=== PATIENT | male | born 1975 | race American Indian/Alaskan Native ===

== ENCOUNTER 2016-07-20 16:45 | Emergency (ER) | payer SELFPAY ==
[2016-07-20] MEDS ORDERED: TORADOL IM ONE (22:19)
--- NOTE | 2016-07-20 22:43 | Emergency Department Report ---
- General Chief Complaint: Upper Respiratory Infection Stated Complaint: COLD SX Time Seen by Provider: 07/20/16 22:14 Source: patient, EMS Mode of arrival: Ambulatory Limitations: No Limitations - History of Present Illness Initial Comments: 41 y/o male complain of shortness of breath ,headache and dizziness x 3 week .pt state that he was smoker for over 20 years and stop 2 months ago.pt state since stop smoking that he has intermittent difficult of shortness of breath .pt state worsen when at work .pt state that headache and dizziness occurs often .pt state that since stop smoking pt has notice edema round ankle .pt denies any prior medical treatment . Onset/Timin -: month(s) Severity: mild Severity scale (0 -10): 5 Consistency: intermittent Improves With: nothing Worsens With: nothing Associated Symptoms: denies other symptoms - Related Data Previous Rx's Medication Instructions Recorded Last Taken Type Sulfamethoxazole/Trimethoprim 1 each PO TID #126 tablet 07/21/16 Unknown Rx [Bactrim DS TAB] Allergies Allergy/AdvReac Type Severity Reaction Status Date / Time No Known Allergies Allergy Verified 07/20/16 23:58 ED Review of Systems ROS: Stated complaint: COLD SX Other details as noted in HPI Constitutional: denies: chills, fever Eyes: denies: eye pain, eye discharge, vision change ENT: denies: ear pain, throat pain Respiratory: cough, shortness of breath, SOB with exertion. denies: wheezing Cardiovascular: denies: chest pain, palpitations Endocrine: no symptoms reported Gastrointestinal: denies: abdominal pain, nausea, diarrhea Genitourinary: denies: urgency, dysuria Musculoskeletal: denies: back pain, joint swelling, arthralgia Skin: denies: rash, lesions Neurological: headache. denies: weakness, paresthesias Psychiatric: denies: anxiety, depression Hematological/Lymphatic: denies: easy bleeding, easy bruising ED Past Medical Hx - Past Medical History Previous Medical History?: No - Surgical History Past Surgical History?: No - Social History Smoking Status: Former Smoker Substance Use Type: None - Medications Home Medications: Home Medications Medication Instructions Recorded Confirmed Last Taken Type Sulfamethoxazole/Trimethoprim 1 each PO TID #126 tablet 07/21/16 Unknown Rx [Bactrim DS TAB] ED Physical Exam - General Limitations: No Limitations General appearance: alert, in no apparent distress - Head Head exam: Present: atraumatic, normocephalic - Eye Eye exam: Present: normal appearance - ENT ENT exam: Present: mucous membranes moist - Expanded ENT Exam Expanded Mouth exam: Present: other (oral thrush noted to back of throat ) - Neck Neck exam: Present: normal inspection - Respiratory Respiratory exam: Present: normal lung sounds bilaterally. Absent: respiratory distress - Cardiovascular Cardiovascular Exam: Present: regular rate, normal rhythm. Absent: systolic murmur, diastolic murmur, rubs, gallop - GI/Abdominal GI/Abdominal exam: Present: soft, normal bowel sounds - Rectal Rectal exam: Present: deferred - Extremities Exam Extremities exam: Present: normal inspection, full ROM - Back Exam Back exam: Present: normal inspection - Neurological Exam Neurological exam: Present: alert, oriented X3 - Psychiatric Psychiatric exam: Present: normal affect, normal mood - Skin Skin exam: Present: warm, dry, intact, normal color. Absent: rash ED Course Vital Signs 07/20/16 07/20/16 07/21/16 17:10 21:25 02:48 Temperature 99.4 F 99.6 F 97.8 F Pulse Rate 92 H 99 H 75 Respiratory 20 22 15 Rate Blood Pressure 98/62 Blood Pressure 112/69 105/70 [Right] O2 Sat by Pulse 98 99 97 Oximetry 07/21/16 02:49 Temperature 98.2 F Pulse Rate Respiratory Rate Blood Pressure Blood Pressure [Right] O2 Sat by Pulse Oximetry ED Medical Decision Making - Lab Data Result diagrams: 07/20/16 22:45 07/20/16 22:45 - Medical Decision Making Consult with : treat patient outpatient for Pneumocystis Pneumonia and follow up with Infectious Disease clinic Critical care attestation.: If time is entered above; I have spent that time in minutes in the direct care of this critically ill patient, excluding procedure time. ED Disposition Clinical Impression: Pneumonia, pneumocystis carinii Qualifiers: Laterality: bilateral Lung location: lower lobe of lung Qualified Code(s): B59 - Pneumocystosis Disposition: DISCHARGED TO HOME OR SELFCARE Is pt being admited?: No Does the pt Need Aspirin: No Condition: Stable Instructions: Bacterial Pneumonia (ED) Prescriptions: Sulfamethoxazole/Trimethoprim [Bactrim DS TAB] 1 each PO TID #126 tablet Forms: Work/School Release Form(ED) Time of Disposition: :20
[2016-07-20 23:02] LABS: Basophils % (Auto) 0.4 % (0.0-1.8); Eosinophils % (Auto) 4.9 % (0.0-4.3); Hematocrit 32.4 % (35.5-45.6); Hemoglobin 10.6 gm/dl (11.8-15.2); Mean Corpuscular HGB Conc 33 % (32-34); Mean Corpuscular Hemoglobin 28 pg (28-32); Mean Corpuscular Volume 85 fl (84-94); Platelet Count 427 K/mm3 (140-440); Red Blood Count 3.79 M/mm3 (3.65-5.03); White Blood Count 3.9 K/mm3 (4.5-11.0)
[2016-07-20 23:14] LABS: Anion Gap 17 mmol/L; Blood Urea Nitrogen 8 mg/dL (9-20); Calcium 8.2 mg/dL (8.4-10.2); Carbon Dioxide 25 mmol/L (22-30); Chloride 95.9 mmol/L (98-107); Glucose 84 mg/dL (75-100); Potassium 3.9 mmol/L (3.6-5.0); Sodium 134 mmol/L (137-145)
[2016-07-20] MEDS ORDERED: NACL 0.9% 1000 ML 1,000 ML IV ONE (23:23)
--- NOTE | 2016-07-20 23:32 | XRay Report ---
FINAL REPORT PROCEDURE: XR CHEST ROUTINE 2V TECHNIQUE: PA and lateral chest radiographs were obtained. CPT 74732 HISTORY: shortness of breath COMPARISON: No prior studies are available for comparison. FINDINGS: Heart: Normal. Mediastinum/Vessels: Normal. Lungs/Pleural space: The lungs are well-expanded. There is a nodular density along the right hemidiaphragm on the frontal view. No corresponding abnormality is seen on the lateral view. This could be a focal infiltrate or possibly a pulmonary nodule. Short-term followup chest x-ray may be helpful. If there are risk factors, CT may be indicated short-term as well. There are no effusions or pneumothoraces.. Bony thorax: No acute osseous abnormality. Other: IMPRESSION: The heart size is normal.. The lungs are well-expanded. There is a nodular density along the right hemidiaphragm on the frontal view. No corresponding abnormality is seen on the lateral view. This could be a focal infiltrate or possibly a pulmonary nodule. Short-term followup chest x-ray may be helpful. If there are risk factors, CT may be indicated short-term as well. There are no effusions or pneumothoraces..
[2016-07-20] MEDS ORDERED: NACL ONE (23:53)
--- NOTE | 2016-07-21 01:06 | Cat Scan Report ---
FINAL REPORT PROCEDURE: CT ANGIO CHEST TECHNIQUE: Computerized tomographic angiography of the chest was performed after the IV injection of iodinated nonionic contrast including image processing. The image data was postprocessed using 2-dimensional multiplanar reformatted (MPR) and 3-dimensional (MIP and/or volume rendered) techniques. HISTORY: shortness of breath COMPARISON: No prior studies are available for comparison. FINDINGS: Heart and pericardium: Normal. Thoracic aorta: Normal. Pulmonary vasculature: Normal. Lymph nodes: No enlarged thoracic lymph nodes. Lungs: Lungs are well-expanded. There are faint ground-glass densities bilaterally and there is interlobular pulmonary septal thickening at the lung bases suggesting interstitial pneumonitis and possible mild pulmonary edema. There is no airspace consolidation. There are no nodules or masses.. Pleural space: There is no effusion or pneumothorax.. Musculoskeletal structures: No significant abnormality. Upper abdominal structures: No significant abnormality. IMPRESSION: There is no pulmonary embolism. There is no thoracic aortic aneurysm or dissection. Lungs are well-expanded. There are faint ground-glass densities bilaterally and there is interlobular pulmonary septal thickening at the lung bases suggesting interstitial pneumonitis and possible mild pulmonary edema. There is no airspace consolidation. There are no nodules or masses.. There is no effusion or pneumothorax..
[2016-07-21 01:11] LABS: Creatine Kinase MB < 1.0 ng/mL (0.0-4.0)
[2016-07-21 01:13] LABS: Creatine Kinase 112 units/L (55-170)
[2016-07-21 02:49] VITALS: BP 105/70
== END 2016-07-21 03:23 | disposition home or self-care (01) ==
LOC: ED 16:45
DX: B59 Pneumocystosis (principal); Z87.891 Personal history of nicotine dependence
CPT/HCPCS: 36415; 71020; 71275; 80048; 82550; 82553; 83880; 84484; 85025; 93005; 93010; 96360; 96372; 99285; J1885; J7030; Q9967